=== PATIENT | male | born 1965 | race African-American/Black ===

== ENCOUNTER 2016-05-21 13:45 | Emergency (ER) | payer BC ==
[2016-05-21] MEDS ORDERED: Aspirin Low Dose CHEW TAB* 81 MG PO ONE (13:57)
--- NOTE | 2016-05-21 14:14 | RAD ---
INDICATION: Chest pain COMPARISON: November 04, 2014 TECHNIQUE: An AP portable view obtained at 1400 hours is submitted. FINDINGS: Bones/Soft Tissues: There are no acute bony findings. Cardiomediastinal: The cardiomediastinal silhouette is normal. Lungs: There are no infiltrates. Pleura: There are no pleural effusions. Other: None IMPRESSION: NO ACTIVE DISEASE.
[2016-05-21 14:26] LABS: Hematocrit 43 % (42-52); Hemoglobin 14.7 g/dl (14.0-18.0); Mean Corpuscular HGB Conc 34 g/dl (31-36); Mean Corpuscular Hemoglobin 29 pg (27-31); Mean Corpuscular Volume 86 fL (80-94); Mean Platelet Volume 9 um3 (7.4-10.4); Red Blood Count 5.07 10^6/ul (4.0-5.4); Red Cell Distribution Width 13 % (10.5-15); White Blood Count 6.4 10^3/ul (3.5-10.8)
[2016-05-21 14:42] LABS: Calcium 9.1 mg/dL (8.6-10.3); EGFR African American 88.3 (>60); EGFR Non-African American 68.7 (>60); Total Bilirubin 0.7 mg/dL (0.2-1.0)
[2016-05-21 14:44] LABS: Troponin I 0.01 ng/mL (<0.04)
--- NOTE | 2016-05-21 15:03 | ED ---
Prashanth Tovar Rebecca, scribed for Timothy Dunn MD on 05/21/16 at 1358 . HPI Chest Pain - HPI Summary HPI Summary: Gaudencio Reyes is a 50 y/o M with a CC of CP. Pain began suddenly at 1250 and has been constant since onset. Pain is discrete to the left anterior region without radiation. Pain characterized as pressure and currently moderate, ranked 4/10. Administered 3 325mg [facility]. Sx aggravated and alleviated by nothing. Additionally c/o lightheadedness immediately prior to onset of CP. Prior similar episode with a dx of hyperglycemia. No PMHx CAD. - History of Current Complaint Time Seen by Provider: 05/21/16 13:49 Hx Obtained From: Patient Onset/Duration: Started Hours Ago - 1.5 hours, Still Present Time of Onset: 12:50 Timing: Constant Initial Severity: Moderate Current Severity: Moderate Pain Intensity: 4 Pain Scale Used: 0-10 Numeric Chest Pain Location: Left Anterior Chest Pain Radiates: No Character: Pressure/Squeezing Aggravating Factor(s): Nothing Alleviating Factor(s): Nothing Associated Signs and Symptoms: Positive: Lightheadedness - Allergy/Home Medications Allergies/Adverse Reactions: Allergies Allergy/AdvReac Type Severity Reaction Status Date / Time No Known Allergies Allergy Verified 05/21/16 13:51 PMH/Surg Hx/FS Hx/Imm Hx Endocrine/Hematology History: Reports: Hx Diabetes Denies: Hx Thyroid Disease Cardiovascular History: Reports: Hx Hypertension Respiratory History: Denies: Hx Asthma, Hx Chronic Obstructive Pulmonary Disease (COPD) GI History: Denies: Hx Ulcer - Surgical History Surgery Procedure, Year, and Place: Lipoma removal from neck last year - Immunization History Date of Tetanus Vaccine: Unk Date of Influenza Vaccine: Fall 2013 Infectious Disease History: Denies: Hx Clostridium Difficile, Hx Hepatitis, Hx Human Immunodeficiency Virus (HIV), Hx of Known/Suspected MRSA, Hx Shingles, Hx Tuberculosis, Hx Known/ Suspected VRE, Hx Known/Suspected VRSA, History Other Infectious Disease - Family History Known Family History: Positive: Other - A fib Negative: Cardiac Disease - Social History Alcohol Use: Occasionally Substance Use Type: Reports: None Smoking Status (MU): Never Smoked Tobacco Review of Systems Positive: Chest Pain - moderate, left anterior Neurological: Other - Lightheadedness All Other Systems Reviewed And Are Negative: Yes Physical Exam Triage Information Reviewed: Yes Vital Signs On Initial Exam: Initial Vitals Temp Pulse Resp BP Pulse Ox 98.5 F 91 19 168/89 96 05/21/16 13:45 05/21/16 13:45 05/21/16 13:45 05/21/16 13:45 05/21/16 13:45 Vital Signs Reviewed: Yes Appearance: Positive: Well-Appearing, No Pain Distress Skin: Positive: Warm, Skin Color Reflects Adequate Perfusion, Dry Head/Face: Positive: Normal Head/Face Inspection Eyes: Positive: Normal ENT: Positive: Normal ENT inspection Neck: Positive: Supple, Nontender Respiratory/Lung Sounds: Positive: Clear to Auscultation, Breath Sounds Present Cardiovascular: Positive: RRR, Pulses are Symmetrical in both Upper and Lower Extremities Abdomen Description: Positive: Nontender, Soft Bowel Sounds: Positive: Present Musculoskeletal: Positive: Normal Neurological: Positive: Normal Psychiatric: Positive: Normal, Affect/Mood Appropriate Diagnostics - Vital Signs Vital Signs Temp Pulse Resp BP Pulse Ox 05/21/16 13:45 98.5 F 91 19 168/89 96 - Laboratory Lab Results: Lab Results 05/21/16 05/21/16 05/21/16 Range/Units 14:15 14:15 14:15 WBC 6.4 (3.5-10.8) 10^3/ul RBC 5.07 (4.0-5.4) 10^6/ul Hgb 14.7 (14.0-18.0) g/dl Hct 43 (42-52) % MCV 86 (80-94) fL MCH 29 (27-31) pg MCHC 34 (31-36) g/dl RDW 13 (10.5-15) % Plt Count 183 (150-450) 10^3/ul MPV 9 (7.4-10.4) um3 Neut % (Auto) 62.0 (38-83) % Lymph % (Auto) 26.7 (25-47) % Daggett % (Auto) 9.0 (1-9) % Eos % (Auto) 1.4 (0-6) % Baso % (Auto) 0.9 (0-2) % Absolute Neuts (auto) 4.0 (1.5-7.7) 10^3/ul Absolute Lymphs (auto) 1.7 (1.0-4.8) 10^3/ul Absolute Monos (auto) 0.6 (0-0.8) 10^3/ul Absolute Eos (auto) 0.1 (0-0.6) 10^3/ul Absolute Basos (auto) 0.1 (0-0.2) 10^3/ul Absolute Nucleated RBC 0.01 10^3/ul Nucleated RBC % 0.1 Sodium 136 (133-145) mmol/L Potassium Pending Chloride 100 L (101-111) mmol/L Carbon Dioxide 26 (22-32) mmol/L Anion Gap Pending BUN 9 (6-24) mg/dL Creatinine 1.13 (0.67-1.17) mg/dL Est GFR ( Amer) 88.3 (>60) Est GFR (Non-Af Amer) 68.7 (>60) BUN/Creatinine Ratio 8.0 (8-20) Glucose 267 H (70-100) mg/dL Lactic Acid 2.8 H* (0.5-2.0) mmol/L Calcium 9.1 (8.6-10.3) mg/dL Total Bilirubin 0.70 (0.2-1.0) mg/dL AST Pending ALT 87 H (7-52) U/L Alkaline Phosphatase 69 (34-104) U/L Troponin I 0.01 (<0.04) ng/mL Total Protein 7.0 (6.4-8.9) g/dL Albumin 4.0 (3.2-5.2) g/dL Globulin 3.0 (2-4) g/dL Albumin/Globulin Ratio 1.3 (1-3) Result Diagrams: 05/21/16 14:15 05/21/16 14:15 Lab Statement: Any lab studies that have been ordered have been reviewed, and results considered in the medical decision making process. - Radiology CXR Xray Interpretation: No Acute Changes Radiology Interpretation Completed By: Radiologist - EKG 1346 Cardiac Rate: Tachycardia - Borderline tachycardia at91 bpm EKG Rhythm: Sinus Tachycardia - Borderline tachycardic ST Segment: Non-Specific - Diffuse non-specific T wave changes, flattening EKG Comparison: No Significant Change - from EKG on 11/04/14 Chest Pain Course/Dx - Course Assessment/Plan: Gaudencio Reyes is a 50 y/o M with a CC of left anterior CP for 1.5 hours. Pain characterized as moderate pressure. Additionally c/o lightheadedness immediately prior to onset of pain. EKG reveals sinus tachy and diffuse non-specific T wave changes, flattening and was unchanged significantly from EKG on 11/04/2014. CXR reveals no active disease. He will be signed out to Dr. Reno. - Diagnoses Provider Diagnoses: Chest pain - Provider Notifications Discussed Care Of Patient With: Dr. Reno Time Discussed With Above Provider: 15:00 - change of shift Discharge - Discharge Plan Condition: Stable Disposition: OTHER Discharge Disposition Comment: He will be signed out to Dr. Reno, pending dispo, awaiting labs Referrals: Tin Montemayor MD [Primary Care Provider] - Additional Instructions: Recommend Ibuprofen as directed to treat the pain. The documentation as recorded by the Prashanth hendrix Rebecca accurately reflects the service I personally performed and the decisions made by , Timothy Dunn MD.
[2016-05-21 18:14] VITALS: BP 146/80
--- NOTE | 2016-06-13 11:03 | ED ---
ISuresh Michael, scribed for Yaritza Reno MD on 05/21/16 at 1748 . Progress - Results/Orders Results/Orders: repeat Troponin was nml. Course/Dx - Diagnoses Provider Diagnoses: Chest pain - Provider Notifications Discussed Care Of Patient With: Dr. Reno Time Discussed With Above Provider: 15:00 - change of shift The documentation as recorded by the scribeSuresh Michael accurately reflects the service I personally performed and the decisions made by me, Yaritza Reno MD.
== END 2016-05-21 18:24 | disposition home or self-care (01) ==
LOC: ED 13:45
DX: R07.9 Chest pain, unspecified (principal); R42 Dizziness and giddiness
CPT/HCPCS: 36415; 71010; 80053; 83605; 84484; 85025; 93005; 99282

== ENCOUNTER 2016-09-13 16:52 | Emergency (ER) | payer BC ==
[2016-09-13] MEDS ORDERED: Ciprofloxacin 0.3% OPTH.SOL* 2.5 ML BTL LEFT EYE ONE (20:43)
--- NOTE | 2016-09-13 20:46 | ED ---
Throat Pain/Nasal Congestion - HPI Summary HPI Summary: 51M presents with potential corneal abrasion today. He states he was taking out his contacts and scratched his eye. He wears contacts. He admits to photophobia. He denies any change in vision. He states there was some white discharge s/p he scratched it. He denies any foreign body. - History of Current Complaint Chief Complaint: EDEyeProblem Time Seen by Provider: 09/13/16 19:54 - Allergies/Home Medications Allergies/Adverse Reactions: Allergies Allergy/AdvReac Type Severity Reaction Status Date / Time No Known Allergies Allergy Verified 09/13/16 16:54 PMH/Surg Hx/FS Hx/Imm Hx Endocrine/Hematology History: Reports: Hx Diabetes Denies: Hx Thyroid Disease Cardiovascular History: Reports: Hx Hypertension Respiratory History: Denies: Hx Asthma, Hx Chronic Obstructive Pulmonary Disease (COPD) GI History: Denies: Hx Ulcer Sensory History: Reports: Hx Contacts or Glasses Opthamlomology History: Reports: Hx Contacts or Glasses - Surgical History Surgery Procedure, Year, and Place: Lipoma removal from neck last year - Immunization History Date of Tetanus Vaccine: Unk Date of Influenza Vaccine: Fall 2013 Infectious Disease History: No Infectious Disease History: Denies: Hx Clostridium Difficile, Hx Hepatitis, Hx Human Immunodeficiency Virus (HIV), Hx of Known/Suspected MRSA, Hx Shingles, Hx Tuberculosis, Hx Known/ Suspected VRE, Hx Known/Suspected VRSA, History Other Infectious Disease, Traveled Outside the in Last 30 Days - Family History Known Family History: Positive: Other - A fib Negative: Cardiac Disease - Social History Alcohol Use: Occasionally Substance Use Type: Reports: None Smoking Status (MU): Never Smoked Tobacco Review of Systems Negative: Fever Positive: Photophobia, Blurred Vision Negative: Chest Pain Negative: Shortness Of Breath All Other Systems Reviewed And Are Negative: Yes Physical Exam Triage Information Reviewed: Yes Vital Signs On Initial Exam: Initial Vitals Temp Pulse Resp BP Pulse Ox 97.8 F 78 16 175/99 97 09/13/16 16:55 09/13/16 16:55 09/13/16 16:55 09/13/16 16:55 09/13/16 16:55 Vital Signs Reviewed: Yes Appearance: Positive: Well-Appearing Skin: Positive: Warm, Dry Head/Face: Positive: Normal Head/Face Inspection Eyes: Positive: EOMI, RIAZ, Other: - 1mm corneal abrasion seen at 9 position ENT: Positive: Normal ENT inspection, Pharynx normal, TMs normal Respiratory/Lung Sounds: Positive: Clear to Auscultation, Breath Sounds Present Cardiovascular: Positive: Normal, RRR Procedures - Eye Procedure Alcaine Drops Administered: Yes - fluorscein stain shows abrasion at 9 position that is 1 position Diagnostics - Vital Signs Vital Signs Temp Pulse Resp BP Pulse Ox 09/13/16 18:51 97 F 74 16 147/85 99 09/13/16 16:58 97.9 F 75 16 175/99 98 09/13/16 16:55 97.8 F 78 16 175/99 97 - Laboratory Lab Statement: Any lab studies that have been ordered have been reviewed, and results considered in the medical decision making process. EENT Course/Dx - Course Course Of Treatment: 51M presents with potential corneal abrasion today. He states he was taking out his contacts and scratched his eye. He wears contacts and scratched his eye. He denies any foreign body. on fluroscein exam shows 1mm at 9 position. will treat with cipro due to contact. patient understands and agrees with plan - Differential Diagnoses Differential Diagnoses: Conjunctivitis, Corneal Abrasion, Foreign Body - Diagnoses Provider Diagnoses: Corneal abrasion of left eye due to contact lens Discharge - Discharge Plan Condition: Good Disposition: HOME Patient Education Materials: Corneal Abrasion (ED) Referrals: Tin Montemayor MD [Primary Care Provider] - Adalberto Cruz MD [Medical Doctor] - Additional Instructions: Place 1 drop in eye 4 times a day for 5 days Use artificial tears or saline to rinse eye for symptomatic relief Take Tylenol or ibuprofen for pain Follow up with ophthalmology if no improvement in 5 days Return to ED if develop any new or worsening symptoms
[2016-09-13 20:53] VITALS: BP 178/95
== END 2016-09-13 21:08 | disposition home or self-care (01) ==
LOC: ED 16:52
DX: S05.02XA Injury of conjunctiva and corneal abrasion without foreign body, left eye, initial encounter (principal); H53.149 Visual discomfort, unspecified; H53.8 Other visual disturbances; X58.XXXA Exposure to other specified factors, initial encounter; Y93.9 Activity, unspecified; Y92.9 Unspecified place or not applicable
CPT/HCPCS: 99282; A9270-GY

== ENCOUNTER 2016-12-16 18:54 | Emergency (ER) | payer BC ==
[2016-12-16] MEDS ORDERED: NS 0.9% 1000 ML* 1,000 ML IV ONE (21:46)
[2016-12-16] MEDS ORDERED: Morphine INJ* 4 MG/ML 1 ML CARPUJECT IV ONE (21:46)
[2016-12-16] MEDS ORDERED: Ondansetron INJ* 2 MG/ML VIAL IV ONE (21:46)
[2016-12-16 22:19] LABS: Hematocrit 44 % (42-52); Mean Corpuscular HGB Conc 34 g/dl (31-36); Mean Corpuscular Hemoglobin 29 pg (27-31); Mean Corpuscular Volume 85 fL (80-94); Mean Platelet Volume 9 um3 (7.4-10.4); Red Blood Count 5.12 10^6/ul (4.0-5.4); Red Cell Distribution Width 13 % (10.5-15); White Blood Count 5.8 10^3/ul (3.5-10.8)
[2016-12-16] MEDS ORDERED: Morphine INJ* 2 MG/ML 1 ML CARPUJECT ONE (22:29)
[2016-12-16 22:31] LABS: ALT 23 U/L (7-52); Albumin 3.7 g/dL (3.2-5.2); Alkaline Phosphatase 61 U/L (34-104); BUN/Creatinine Ratio 10.6 (8-20); Blood Urea Nitrogen 10 mg/dL (6-24); CO2 Carbon Dioxide 26 mmol/L (22-32); Calcium 8.8 mg/dL (8.6-10.3); Chloride 102 mmol/L (101-111); EGFR African American 108.8 (>60); EGFR Non-African American 84.6 (>60); Globulin 2.9 g/dL (2-4); Glucose 181 mg/dL (70-100); Lipase < 10 U/L (11.0-82.0); Sodium 133 mmol/L (133-145); Total Protein 6.6 g/dL (6.4-8.9)
[2016-12-16 22:49] LABS: Anion Gap 5 mmol/L (2-11)
[2016-12-17] MEDS ORDERED: Iodixanol* (CONTRAST) 320 MG/ML 100 ML SDV IV ONE (00:45)
[2016-12-17 01:05] LABS: Urine Bilirubin Negative (Negative); Urine Glucose 2+(150 mg/dL) (Negative); Urine Nitrite Negative (Negative)
[2016-12-17 02:33] VITALS: BP 105/53
--- NOTE | 2016-12-17 04:12 | ED ---
Prashanth Tovar Rebecca, scribed for Jose De Jesus Rahmanuel on 12/16/16 at 2141 . Abdominal Pain/Male - HPI Summary HPI Summary: Pt is a 51 y/o M who presents to ED c/o RLQ abdominal pain. Pain began 3 days and has been constant and worsening since onset. Pain is described as burning and pressure and is currently severe, ranked 10/10. Has been taking 800 mg Motrin regularly to treat pain which has improved sx. Sx aggravated by nothing. Denies N/V, CP and scrotal pain. - History of Current Complaint Chief Complaint: EDAbdPain Stated Complaint: LOWER RT SIDE PAIN Time Seen by Provider: 12/16/16 21:30 Hx Obtained From: Patient Onset/Duration: Lasting Days - 3 weeks, Still Present Severity Currently: Severe Pain Intensity: 10 Pain Scale Used: 0-10 Numeric Location: Discrete At: RLQ Character: Burning, Other: - Pressure Aggravating Factor(s): Nothing Alleviating Factor(s): Nothing - Allergies/Home Medications Allergies/Adverse Reactions: Allergies Allergy/AdvReac Type Severity Reaction Status Date / Time No Known Allergies Allergy Verified 12/16/16 19:32 PMH/Surg Hx/FS Hx/Imm Hx Endocrine/Hematology History: Reports: Hx Diabetes Denies: Hx Thyroid Disease Cardiovascular History: Reports: Hx Hypertension Respiratory History: Denies: Hx Asthma, Hx Chronic Obstructive Pulmonary Disease (COPD) GI History: Denies: Hx Ulcer Sensory History: Reports: Hx Contacts or Glasses Opthamlomology History: Reports: Hx Contacts or Glasses - Surgical History Surgery Procedure, Year, and Place: Lipoma removal from neck last year - Immunization History Date of Tetanus Vaccine: Unk Date of Influenza Vaccine: Fall 2013 Infectious Disease History: No Infectious Disease History: Reports: Traveled Outside the [place] in Last 30 Days - [place] Denies: Hx Clostridium Difficile, Hx Hepatitis, Hx Human Immunodeficiency Virus (HIV), Hx of Known/Suspected MRSA, Hx Shingles, Hx Tuberculosis, Hx Known/ Suspected VRE, Hx Known/Suspected VRSA, History Other Infectious Disease - Family History Known Family History: Positive: Other - A fib Negative: Cardiac Disease - Social History Alcohol Use: Occasionally Substance Use Type: Reports: None Smoking Status (MU): Never Smoked Tobacco Review of Systems Negative: Chest Pain Positive: Abdominal Pain. Negative: Vomiting, Nausea Positive: other - NEGATIVE: scrotal pain All Other Systems Reviewed And Are Negative: Yes Physical Exam - Summary Physical Exam Summary: Appearance: Well appearing, no pain distress Skin: warm, dry, reflects adequate perfusion Head/face: normal Eyes: EOMI, RIAZ ENT: normal Neck: supple, nontender Respiratory: CTA, breath sounds present Cardiovascular: RRR, pulses symmetrical Abdomen: RLQ tenderness, soft Bowel: present Musculoskeletal: normal, strength/ROM intact Neuro: normal, sensory motor intact, A&Ox3 Triage Information Reviewed: Yes Vital Signs On Initial Exam: Initial Vitals Temp Pulse Resp BP Pulse Ox 98.2 F 76 16 152/88 96 12/16/16 19:29 12/16/16 19:29 12/16/16 19:29 12/16/16 19:29 12/16/16 19:29 Vital Signs Reviewed: Yes Diagnostics - Vital Signs Vital Signs Temp Pulse Resp BP Pulse Ox 12/16/16 20:55 97.1 F 74 16 131/79 96 12/16/16 19:29 98.2 F 76 16 152/88 96 - Laboratory Result Diagrams: 12/16/16 21:55 12/16/16 23:44 Lab Statement: Any lab studies that have been ordered have been reviewed, and results considered in the medical decision making process. - CT CT Abd/Pel CT Interpretation: No Acute Changes - Tiny bilateral non-obstructing renal stones. Moderate-sized fat containing left inguinal hernia. No definite acute pathology. ED physician reviewed radiology report and agrees. CT Interpretation Completed By: Radiologist - EKG 2248 Cardiac Rate: NL - 70 bpm EKG Rhythm: Sinus Rhythm EKG Interpretation: No acute changes Re-Evaluation - Re-Evaluation First Eval Re-Evaluation Time: 01:56 Change: Improved Comment: Discussed results with the pt who is feeling much better. Abdominal Pain Fem Course/Dx - Course Assessment/Plan: Pt is a 51 y/o M who presents to ED c/o RLQ abdominal pain. Pain began 3 days and has been constant and worsening since onset. Pain is described as burning and pressure and is currently severe, ranked 10/10. Has been taking 800 mg Motrin regularly to treat pain which has improved sx. Denies N/V, CP and scrotal pain. CT Abd/Pel reveals tiny bilateral non-obstructing renal stones. Moderate-sized fat containing left inguinal hernia. Troponin of 0.00. UA negative for UTI. No definite acute pathology. EKG is sinus rhythm with no acute changes. In the ED course, pt received morphine, zofran and fluids which improved sx. Pt will be D/C to home with Dx of abdominal pain with Rx for Motrin and a follow up with his PCP. He understands and agrees. Elevated BP noted and advised to f/u with PCP. - Diagnoses Provider Diagnoses: Abdominal pain Discharge - Discharge Plan Condition: Stable Disposition: HOME Prescriptions: Ibuprofen TAB* [Motrin TAB* 600 MG] 600 mg PO Q8H PRN #20 tab MDD 3 PRN Reason: Pain Patient Education Materials: Acute Abdominal Pain (ED) Referrals: Tin Montemayor MD [Primary Care Provider] - 3 Days The documentation as recorded by the Prashanth hendrix Rebecca accurately reflects the service I personally performed and the decisions made by , Leonel Rahman.
--- NOTE | 2016-12-17 10:24 | RAD ---
INDICATION: RIGHT lower quadrant pain. Intermittent flank pain. Assess for appendicitis. COMPARISON: June 22, 2016 ultrasound. TECHNIQUE: Multidetector CT images were obtained from the lung bases to the ischial tuberosities with 141 mL Visipaque 320 IV and oral contrast. Multiplanar reformation. REPORT: Unremarkable visualized inferior thorax. Diffuse decreased density of the liver consistent with hepatosteatosis. No CT abnormality of the gallbladder or biliary dilatation. Unremarkable pancreas and spleen. Gastric distention with food stuff. Negative for CT abnormality of the small bowel or infra cecal appendix. Enteric contrast extends to the rectum. A few colonic diverticula at the sigmoid colon without findings of diverticulitis. Negative for ascites or free air. Tiny fat-containing umbilical hernia without inflammatory change. Moderate fat-containing indirect LEFT inguinal hernia without inflammatory change. 1.2 x 1.4 cm nodule at the caudal aspect of the LEFT adrenal gland which is nonspecific based on density measurement. Unremarkable RIGHT adrenal gland. Suggestion of 1 mm nonobstructing RIGHT lower pole and few 1 -- 2 mm LEFT upper and lower pole nonobstructing calyceal stones although presence of contrast limits specificity. Symmetric nephrograms and pyelograms. Unremarkable nondilated ureters and partially distended urinary bladder. Mildly prominent prostate with central coarse calcification. Asymmetric diminutive LEFT seminal vesicle. Unremarkable RIGHT seminal vesicle. Negative for lymphadenopathy. Normal diameter abdominal aorta and iliac arteries. Physiologic distention of the IVC. Polyarticular degenerative arthropathy. No suspicious focal osseous lesions evident. IMPRESSION: 1. Hepatic steatosis. 2. Mild colonic diverticulosis without findings of diverticulitis. Normal appendix documented. 3. Tiny fat-containing umbilical hernia without inflammatory change. Moderate fat-containing indirect LEFT inguinal hernia without inflammatory change. 4. Probable tiny nonobstructing renal collecting system stones. 5. Low suspicion 1.4 cm LEFT adrenal nodule based on small size. Consider reassessment with noncontrast CT or MRI in 6 months time.
== END 2016-12-17 02:25 | disposition home or self-care (01) ==
LOC: ED 18:54
DX: R10.31 Right lower quadrant pain (principal); E11.9 Type 2 diabetes mellitus without complications
CPT/HCPCS: 36415; 74177; 80053; 81003; 83690; 84484; 85025; 85610; 85730; 93005; 96374; 96375; 99283; J2270; J2405; Q9967

== ENCOUNTER 2017-06-05 14:48 | Emergency (ER) | payer BC ==
[2017-06-05] MEDS ORDERED: Ibuprofen TAB* 600 MG PO ONE (16:30)
[2017-06-05] MEDS ORDERED: Ondansetron ODT TAB* 4 MG PO ONE (16:30)
[2017-06-05 16:33] VITALS: BP 164/99
--- NOTE | 2017-06-05 20:03 | ED ---
Britni Tovar Edward, scribed for Timothy Dunn MD on 06/05/17 at 1509 . HPI Febrile Illness - HPI Summary HPI Summary: 51 y/o male presents to the ED c/o flu-like symptoms lasting several days. Sx not aggravated or alleviated by anything. Pt c/o body aches, productive cough, sore throat, fever, nasal drainage and general malaise. Positive sick contact at home. - History of Current Complaint Chief Complaint: EDFluSymptoms Time Seen by Provider: 06/05/17 15:08 Hx Obtained From: Patient Onset/Duration: Started Days Ago Pain Intensity: 8 Aggravating Factors: Nothing Alleviating Factors: Nothing Associated Signs and Symptoms: Cough, Drainage, Myalgia, Sore Throat - Allergy/Home Medications Allergies/Adverse Reactions: Allergies Allergy/AdvReac Type Severity Reaction Status Date / Time No Known Allergies Allergy Verified 12/16/16 19:32 PMH/Surg Hx/FS Hx/Imm Hx Previously Healthy: No Endocrine/Hematology History: Reports: Hx Diabetes Denies: Hx Thyroid Disease Cardiovascular History: Reports: Hx Hypertension Respiratory History: Denies: Hx Asthma, Hx Chronic Obstructive Pulmonary Disease (COPD) GI History: Denies: Hx Ulcer History: Denies: Hx Dialysis, Hx Renal Disease Musculoskeletal History: Denies: Hx Rheumatoid Arthritis, Hx Osteoporosis Sensory History: Reports: Hx Contacts or Glasses Opthamlomology History: Reports: Hx Contacts or Glasses - Surgical History Surgery Procedure, Year, and Place: Lipoma removal from neck last year - Immunization History Date of Tetanus Vaccine: Unk Date of Influenza Vaccine: Fall 2013 Infectious Disease History: No Infectious Disease History: Denies: Hx Clostridium Difficile, Hx Hepatitis, Hx Human Immunodeficiency Virus (HIV), Hx of Known/Suspected MRSA, Hx Shingles, Hx Tuberculosis, Hx Known/ Suspected VRE, Hx Known/Suspected VRSA, History Other Infectious Disease, Traveled Outside the [place] in Last 30 Days - Family History Known Family History: Positive: Other - A fib Negative: Cardiac Disease - Social History Alcohol Use: Occasionally Substance Use Type: Reports: None Smoking Status (MU): Never Smoked Tobacco Review of Systems Positive: Fever, Fatigue Eyes: Negative Positive: Sore Throat, Nasal Discharge - rhinorrhea Cardiovascular: Negative Positive: Cough Gastrointestinal: Negative Genitourinary: Negative Positive: Myalgia Skin: Negative Neurological: Negative Psychological: Normal All Other Systems Reviewed And Are Negative: Yes Physical Exam - Summary Physical Exam Summary: Appearance: The patient is well-nourished in no acute distress and in no acute pain. Skin: The skin is warm and dry and skin color reflects adequate perfusion. HEENT: The head is normocephalic and atraumatic. The pupils are equal and reactive. The conjunctivae are clear and without drainage. The patient has some nasal congestion. Mouth reveals moist mucous membranes and the throat is without erythema and exudate. The external ears are intact. The ear canals are patent and without drainage. The tympanic membranes are mildly erythematous. Neck: the neck is supple with full range of motion and non-tender. There are no carotid bruits. There is no neck vein distension. Respiratory: Chest is non-tender. Lungs are clear to auscultation and breath sounds are symmetrical and equal. Cardiovascular: Heart is regular rate and rhythm. There is no murmur or rub auscultated. There is no peripheral edema and pulses are symmetrical and equal. Abdomen: The abdomen is soft and non-tender. There are normal bowel sounds heard in all four quadrants and there is no organomegaly palpated. Musculoskeletal: There is no back tenderness noted. Extremities are non-tender with full range of motion. There is good capillary refill. There is no peripheral edema or calf tenderness elicited. Neurological: Patient is alert and oriented to person, place and time. The patient has symmetrical motor strength in all four extremities. Cranial nerves are grossly intact. Deep tendon reflexes are symmetrical and equal in all four extremities. Psychiatric: The patient has an appropriate affect and does not exhibit any anxiety or depression. Triage Information Reviewed: Yes Vital Signs On Initial Exam: Initial Vitals Temp Pulse Resp BP Pulse Ox 100.4 F 101 20 155/89 96 06/05/17 14:59 06/05/17 14:59 06/05/17 14:59 06/05/17 14:59 06/05/17 14:59 Vital Signs Reviewed: Yes Diagnostics - Vital Signs Vital Signs Temp Pulse Resp BP Pulse Ox 06/05/17 14:59 100.4 F 101 20 155/89 96 - Laboratory Lab Results: Lab Results 06/05/17 Range/Units 15:41 Influenza A (Rapid) Negative (Negative) Influenza B (Rapid) Positive A (Negative) Lab Statement: Any lab studies that have been ordered have been reviewed, and results considered in the medical decision making process. Course/Dx - Course Course Of Treatment: Mr. Reyes came in concerned that he has influenza. He was positive for influenza B. He was quite stable and was started on medications. - Diagnoses Provider Diagnoses: Influenza B Discharge - Discharge Plan Condition: Stable Disposition: HOME Prescriptions: Ondansetron ODT TAB* [Zofran Odt TAB*] 4 mg PO Q6H PRN #20 tab.odt PRN Reason: Nausea/Vomiting Oseltamivir CAP* [Tamiflu CAP*] 75 mg PO BID #10 cap Patient Education Materials: Influenza (ED) Forms: *Work Release Referrals: Tin Montemayor MD [Medical Doctor] - 4 Days (PLEASE F/U IN 3-5 DAYS) Additional Instructions: RETURN FOR WORSENING SYMPTOMS The documentation as recorded by the Britni hendrix Edward accurately reflects the service I personally performed and the decisions made by , Timothy Dunn MD.
== END 2017-06-05 16:29 | disposition home or self-care (01) ==
LOC: ED 14:48
DX: J10.1 Influenza due to other identified influenza virus with other respiratory manifestations (principal); R05 Cough; J02.9 Acute pharyngitis, unspecified
CPT/HCPCS: 87502; 99281

== ENCOUNTER 2017-12-23 08:28 | Emergency (ER) | payer BC, OTHER ==
--- NOTE | 2017-12-23 08:43 | ED ---
HPI Chest Pain - HPI Summary HPI Summary: This patient is a 52 year old M presenting to [facility] accompanied by his with a chief complaint of sudden sharp mid sternal chest pain while driving from work this morning lasting roughly 5 minutes before subsiding. Patient also reports pain in his lower lip with chest pain. Pain was 8/10 in severity. He denies SOB and nausea. He additionally reports that he worked out yesterday and id chest exercises and ran 5 miles. PMHx of DM and HTN. - History of Current Complaint Time Seen by Provider: 12/23/17 08:30 Hx Obtained From: Patient Onset/Duration: Started Hours Ago, Resolved Timing: Lasting Minutes Initial Severity: Severe Current Severity: None Pain Intensity: 8 Pain Scale Used: 0-10 Numeric Chest Pain Location: Mid Sternal Chest Pain Radiates: Yes Chest Pain Radiates To:: Other - lower lip Character: Sharp/Stabbing Aggravating Factor(s): Nothing Alleviating Factor(s): Spontaneous Resolution Associated Signs and Symptoms: Negative: Shortness of Breath, Nausea - Allergy/Home Medications Allergies/Adverse Reactions: Allergies Allergy/AdvReac Type Severity Reaction Status Date / Time No Known Allergies Allergy Verified 12/16/16 19:32 PMH/Surg Hx/FS Hx/Imm Hx Endocrine/Hematology History: Reports: Hx Diabetes Denies: Hx Thyroid Disease Cardiovascular History: Reports: Hx Hypertension Respiratory History: Denies: Hx Asthma, Hx Chronic Obstructive Pulmonary Disease (COPD) GI History: Denies: Hx Ulcer History: Denies: Hx Dialysis, Hx Renal Disease Musculoskeletal History: Denies: Hx Rheumatoid Arthritis, Hx Osteoporosis Sensory History: Reports: Hx Contacts or Glasses Opthamlomology History: Reports: Hx Contacts or Glasses - Surgical History Surgery Procedure, Year, and Place: Lipoma removal from neck last year - Immunization History Date of Tetanus Vaccine: Unk Date of Influenza Vaccine: Fall 2013 Infectious Disease History: Denies: Hx Clostridium Difficile, Hx Hepatitis, Hx Human Immunodeficiency Virus (HIV), Hx of Known/Suspected MRSA, Hx Shingles, Hx Tuberculosis, Hx Known/ Suspected VRE, Hx Known/Suspected VRSA, History Other Infectious Disease - Family History Known Family History: Positive: Other - A fib Negative: Cardiac Disease - Social History Occupation: Employed Full-time Alcohol Use: Occasionally Substance Use Type: Reports: None Smoking Status (MU): Never Smoked Tobacco Review of Systems Positive: Chest Pain Negative: Shortness Of Breath Negative: Abdominal Pain, Nausea All Other Systems Reviewed And Are Negative: Yes Physical Exam - Summary Physical Exam Summary: VITAL SIGNS: Reviewed. GENERAL: Patient is a well-developed and nourished male who is lying comfortable in the stretcher. Patient is not in any acute respiratory distress. HEAD AND FACE: No signs of trauma. No ecchymosis, hematomas or skull depressions. No sinus tenderness. EYES: PERRLA, EOMI x 2, No injected conjunctiva, no nystagmus. EARS: Hearing grossly intact. Ear canals and tympanic membranes are within normal limits. MOUTH: Oropharynx within normal limits. NECK: Supple, trachea is midline, no adenopathy, no JVD, no carotid bruit, no c- spine tenderness, neck with full ROM. CHEST: Symmetric, no tenderness at palpation LUNGS: Clear to auscultation bilaterally. No wheezing or crackles. CVS: Regular rate and rhythm, S1 and S2 present, no murmurs or gallops appreciated. ABDOMEN: Soft, non-tender. No signs of distention. No rebound no guarding, and no masses palpated. Bowel sounds are normal. EXTREMITIES: FROM in all major joints, no edema, no cyanosis or clubbing. NEURO: Alert and oriented x 3. No acute neurological deficits. Speech is normal and follows commands. SKIN: Dry and warm Triage Information Reviewed: Yes Vital Signs Reviewed: Yes Diagnostics - Laboratory Result Diagrams: 12/23/17 08:47 12/23/17 08:47 Lab Statement: Any lab studies that have been ordered have been reviewed, and results considered in the medical decision making process. - Radiology CXR Radiology Interpretation Completed By: Radiologist - NO ACTIVE CARDIOPULMONARY DISEASE. ED Physician has reviewed this report. - EKG 0832 Cardiac Rate: NL - 79 BPM EKG Rhythm: Sinus Rhythm EKG Interpretation: no ST elevations Chest Pain Course/Dx - Course Assessment/Plan: This patient is a 52 year old M presenting to [facility] accompanied by his with a chief complaint of sudden sharp midsternal chest pain while driving from work this morning lasting roughly 5 minutes before subsiding. Patient also reports pain in his lower lip with chest pain. Pain was 8/10 in severity. He denies SOB and nausea. He additionally reports that he worked out yesterday and id chest exercises and ran 5 miles. PMHx of DM and HTN. Physical exam is found within normal limits. In the ER the patient is asymptomatic. The patient denies any chest pain shortness of breath or palpitations. The pain was sharp pain and lasted for 5 minutes. The patient reports that he runs approximately 5 miles every day and he doesnt have any chest pain shortness of breath or palpitations. He reports that yesterday he worked out with heavy weights for the chest and on and off he is having these reproducible sharp chest pains. Blood test results without any significant abnormality except for glucose of 200, magnesium is 1. 6. Which the patient was given magnesium by mouth. Total CPK is 499 point secondary to the heavy workout yesterday. He had 2 troponins 4 hours apart and is 0.00. Given that the patient has history of hypertension and diabetes the patient has been doing a lot of perivascular training every day for without any type of chest pain or angina. The patient also has no hypoxia or tachycardia therefore I have little suspicion for PE. The heart score is equal to 3. Therefore I believe that the patient can be managed as an outpatient. Therefore the patient will be discharged home with follow-up with primary care physician. The patient continues to be asymptomatic. I had a long discussion with the patient about admission versus management as an outpatient and actually the patient prefers to go a follow-up with cardiology as an outpatient. Of course the patient was given specific instructions if he develops any other chest pain, shortness of breath, nausea or vomiting, palpitations or feeling that he is going to pass out the patient will immediately return to the emergency room for further workup and management. At this point the patient is hemodynamically stable alert and oriented 3. I discussed all the findings and test results with the patient. Patient was instructed to return to the emergency room immediately if any of the symptoms return or worsens. Plan of care was discussed with the patient and understands and agrees. All questions were answered at patient satisfaction. There were no further complaints or concerns. Lung exam before discharge: CTA B/L. Good air exchange. No wheezing or crackles heard. CVS: S1 and S2 present. No murmurs appreciated. Patient is alert and oriented x 3. Patient is hemodynamically stable. Patient will be discharged home with follow up PCP in the next 2-3 days - Chest Pain Differential Diagnosis/HQI/PQRI: Acute [place], ACS, Angina, CHF, Chest Wall, GI Disease, Lower Respiratory Infection, Pulmonary Edema - Diagnoses Provider Diagnoses: Atypical chest pain Discharge - Sign-Out/Discharge Documenting (check all that apply): Patient Departure - discharge - Discharge Plan Condition: Stable Disposition: HOME Patient Education Materials: Chest Pain (ED) Referrals: [facility] [Outside] - 2 Days Additional Instructions: RETURN TO THE EMERGENCY DEPARTMENT FOR CHANGING OR WORSENING SYMPTOMS. - Billing Disposition and Condition Condition: STABLE Disposition: Home - Attestation Statements Document Initiated by Scribe: Yes Documenting Scribe: Sarina Lee Provider For Whom Krystae is Documenting (Include Credential): Chris Dalton MD Scribe Attestation: Sarina Tovar, scribed for Chris Dalton MD on 12/23/17 at 1837. Scribe Documentation Reviewed: Yes Provider Attestation: The documentation as recorded by the [email or web address] accurately reflects the service I personally performed and the decisions made by , Chris Dalton MD
[2017-12-23 08:56] LABS: ABS Basophils 0 10^3/ul (0-0.2); ABS Eosinophils 0.1 10^3/ul (0-0.6); ABS Lymphocytes 2.1 10^3/ul (1.0-4.8); ABS Monocytes 0.8 10^3/ul (0-0.8); ABS Nucleated RBC 0 10^3/ul; Hematocrit 43 % (42-52); Hemoglobin 14.7 g/dl (14.0-18.0); Lymphocyte % 35.3 % (25-47); Mean Corpuscular HGB Conc 34 g/dl (31-36); Mean Corpuscular Hemoglobin 30 pg (27-31); Mean Corpuscular Volume 87 fL (80-94); Mean Platelet Volume 8.3 um3 (7.4-10.4); Nucleated Red Blood Cells % 0.3; Platelet Count 186 10^3/ul (150-450); Red Blood Count 4.92 10^6/ul (4.00-5.40); Red Cell Distribution Width 14 % (10.5-15); White Blood Count 5.9 10^3/ul (3.5-10.8)
--- NOTE | 2017-12-23 09:11 | RAD ---
HISTORY: CP COMPARISONS: May 21, 2016 VIEWS: 1: frontal AP view of the chest at 8:40 AM FINDINGS: LINES AND TUBES: None. CARDIOMEDIASTINAL SILHOUETTE: The cardiomediastinal silhouette is normal for portable technique. PLEURA: The costophrenic angles are sharp. No pleural abnormalities are noted. LUNG PARENCHYMA: The lungs are clear. ABDOMEN: The upper abdomen is clear. There is no subphrenic gas. BONES AND SOFT TISSUES: No bone or soft tissue abnormalities are noted. IMPRESSION: NO ACTIVE CARDIOPULMONARY DISEASE.
[2017-12-23 09:12] LABS: EGFR Non-African American 77.6 (>60)
[2017-12-23 09:22] LABS: INR 0.9 (0.77-1.02)
[2017-12-23] MEDS ORDERED: Magnesium Oxide TAB* 400 MG PO ONE (11:21)
[2017-12-23 12:51] VITALS: BP 140/92
== END 2017-12-23 12:52 | disposition home or self-care (01) ==
LOC: ED 08:28
DX: R07.89 Other chest pain (principal); E11.9 Type 2 diabetes mellitus without complications; I10 Essential (primary) hypertension
CPT/HCPCS: 36415; 71045; 80053; 82550; 82553; 83605; 83735; 83880; 84443; 84484; 85025; 85610; 85730; 93005; 99282

== ENCOUNTER 2019-06-27 12:03 | Inpatient (IN) | payer BC ==
[2019-06-27] MEDS ORDERED: Aspirin 81 mg CHEW TAB* 81 MG TAB.CHEW PO ONE (12:16)
--- NOTE | 2019-06-27 12:17 | ED ---
HPI Chest Pain - HPI Summary HPI Summary: Patient is a 53-year-old male for chest pain that started prior to arrival. Pt. states he was biking for about 25 minutes and then developed left sided chest pain. Pain has improved since being in the ED and is a 1/10. He is unable to describe pain. Denies associated syncope, dizziness, diaphoresis, sob, fever, recent illness. 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 Past medical hx of obesity, DM, HTN. Denies smoking. Denies drug use. Rare ETOH use. Denies strong family hx of CAD. Sxs are moderate in severity. No current modifying factors. - History of Current Complaint Chief Complaint: EDChestPainROMI Time Seen by Provider: 06/27/19 12:14 Hx Obtained From: Patient Pain Intensity: 0 - Allergy/Home Medications Allergies/Adverse Reactions: Allergies Allergy/AdvReac Type Severity Reaction Status Date / Time No Known Allergies Allergy Verified 12/16/16 19:32 Home Medications: Home Medications metFORMIN* [Glucophage 500 MG TAB *] 1,000 mg PO BID 08/18/14 [History Confirmed 06/27/19] Telmisartan/Hydrochlorothiazid [Telmisartan-Hctz 40-12.5 mg Tb] 1 each PO DAILY 06/27/19 [History Confirmed 06/27/19] PMH/Surg Hx/FS Hx/Imm Hx Previously Healthy: Yes Endocrine/Hematology History: Reports: Hx Diabetes Denies: Hx Thyroid Disease Cardiovascular History: Reports: Hx Hypertension Denies: Hx Pacemaker/ICD Respiratory History: Denies: Hx Asthma, Hx Chronic Obstructive Pulmonary Disease (COPD) GI History: Denies: Hx Ulcer History: Denies: Hx Dialysis, Hx Renal Disease Musculoskeletal History: Denies: Hx Rheumatoid Arthritis, Hx Osteoporosis Sensory History: Reports: Hx Contacts or Glasses Denies: Hx Hearing Aid Opthamlomology History: Reports: Hx Contacts or Glasses Psychiatric History: Denies: Hx Panic Disorder - Surgical History Surgery Procedure, Year, and Place: Lipoma removal - Immunization History Date of Tetanus Vaccine: Unk Date of Influenza Vaccine: Fall 2013 Infectious Disease History: No Infectious Disease History: Denies: Hx Clostridium Difficile, Hx Hepatitis, Hx Human Immunodeficiency Virus (HIV), Hx of Known/Suspected MRSA, Hx Shingles, Hx Tuberculosis, Hx Known/ Suspected VRE, Hx Known/Suspected VRSA, History Other Infectious Disease, Traveled Outside the [place] in Last 30 Days - Family History Known Family History: Positive: Other - A fib Negative: Cardiac Disease - Social History Occupation: Employed Full-time Lives: With Family Alcohol Use: Occasionally Substance Use Type: Reports: None Smoking Status (MU): Never Smoked Tobacco Review of Systems Constitutional: Negative Negative: Fever Positive: Chest Pain Respiratory: Negative Negative: Shortness Of Breath, Cough Gastrointestinal: Negative Negative: Abdominal Pain, Vomiting, Nausea Neurological/Mental Status: Negative All Other Systems Reviewed And Are Negative: Yes Physical Exam Triage Information Reviewed: Yes Vital Signs On Initial Exam: Initial Vitals Temp Pulse Resp BP Pulse Ox 97.3 F 99 16 154/97 96 06/27/19 12:09 06/27/19 12:09 06/27/19 12:09 06/27/19 12:09 06/27/19 12:09 Vital Signs Reviewed: Yes Appearance: Positive: Well-Appearing - Pt. sitting up in bed in NAD. Skin: Positive: Warm, Dry Head/Face: Positive: Normal Head/Face Inspection Eyes: Positive: Normal, EOMI, RIAZ Neck: Positive: Supple Respiratory/Lung Sounds: Positive: Clear to Auscultation, Breath Sounds Present. Negative: Rales, Rhonchi, Wheezes Cardiovascular: Positive: Normal, RRR Musculoskeletal: Positive: Normal, Strength/ROM Intact Neurological: Positive: Normal, CN Intact II-III Psychiatric: Positive: Affect/Mood Appropriate Procedures - Sedation Patient Received Moderate/Deep Sedation with Procedure: No Diagnostics - Vital Signs Vital Signs Temp Pulse Resp BP Pulse Ox 06/27/19 12:09 97.3 F 99 16 154/97 96 - Laboratory Result Diagrams: 06/27/19 12:33 06/27/19 12:33 Lab Statement: Any lab studies that have been ordered have been reviewed, and results considered in the medical decision making process. Chest Pain Course/Dx - Course Course Of Treatment: Pt. with left sided CP after exercise. Afebrile. Mildy tachycardia. O2 in mid 90's. 324mg ASA given. Pain minimal at this time. ECG done at 1219 shows a sinus tachycardia of 107bpm, normal axis, appropriate intervals, flat t waves, no STEMI. Labs unremarkable other than glucose of 391. Troponin negative x 1. CXR negative for acute findings per radiology. HEART score 5, moderate risk. Hopsitalist consulted for admission. Case discussed with Dr. Perry who will admit to her service for further evaluation. - Chest Pain Differential Diagnosis/HQI/PQRI: Acute [place], ACS, Angina, GI Disease - Diagnoses Provider Diagnoses: Chest pain, Hyperglycemia, Abnormal ECG Discharge ED - Sign-Out/Discharge Documenting (check all that apply): Patient Departure - Discharge Plan Condition: Stable Disposition: ADMITTED TO [facility] Referrals: No Primary Care Phys,NOPCP [Primary Care Provider] - - Billing Disposition and Condition Condition: STABLE Disposition: Admitted to [facility]
[2019-06-27] MEDS ORDERED: NS 0.9% 1000 ML** 1,000 ML IV ONE ×2 (12:26→13:36)
[2019-06-27 12:42] LABS: ABS Lymphocytes 1.3 10^3/ul (1.0-4.8); ABS Monocytes 0.5 10^3/ul (0-0.8); ABS Neutrophils 4.8 10^3/ul (1.5-7.7); Eosinophil % 0.4 %; Hematocrit 43 % (42-52); Mean Corpuscular HGB Conc 35 g/dL (31-36); Mean Corpuscular Hemoglobin 30 pg (27-31); Mean Corpuscular Volume 85 fL (80-94); Mean Platelet Volume 9.4 fL (7.4-10.4); Nucleated Red Blood Cells % 0.1; Platelet Count 178 10^3/uL (150-450); Red Blood Count 5.05 10^6 /uL (4.18-5.48); Red Cell Distribution Width 13 % (10-15); White Blood Count 6.7 10^3/uL (3.5-10.8)
[2019-06-27 12:53] LABS: Activated Partial Thrombo Time 32.7 seconds (26.0-38.0); INR 0.92 (0.82-1.09)
[2019-06-27 12:59] LABS: Albumin/Globulin Ratio 1.3 (1-3); BUN/Creatinine Ratio 12.5 (8-20); Calcium 9.3 mg/dL (8.6-10.3); EGFR Non-African American 68.6 (>60); Total Bilirubin 0.8 mg/dL (0.2-1.0)
[2019-06-27 13:01] LABS: Troponin I 0.01 ng/mL (<0.03)
[2019-06-27 13:12] LABS: Magnesium 1.8 mg/dL (1.9-2.7); Potassium 3.8 mmol/L (3.5-5.0)
[2019-06-27] MEDS ORDERED: Acetaminophen TAB* 325 MG PO PRN (15:05)
[2019-06-27] MEDS ORDERED: Nitroglycerin TAB 0.4 MG* 0.4 MG TAB SL PRN (15:05)
[2019-06-27] MEDS ORDERED: Ondansetron INJ* 2 MG/ML VIAL IV PRN (15:05)
[2019-06-27] MEDS ORDERED: Dextrose 50% Syringe 50 ML* 25 GM/50 ML SYRINGE IV PUSH PRN (15:08)
[2019-06-27] MEDS ORDERED: Insulin LISPRO* 1 UNITS UNIT SUBCUT ONE (15:10)
--- NOTE | 2019-06-27 17:44 | HP ---
CC: Dr. Mariely Storm * ADMISSION HISTORY AND PHYSICAL: DATE OF ADMISSION: 06/27/19 PRIMARY CARE PHYSICIAN: Dr. Mariely Storm. MY ATTENDING PHYSICIAN WHILE IN THE HOSPITAL: Dr. Pam Perry.* (DICTATED BY JOSHUA VÁSQUEZ) CHIEF COMPLAINT: Chest pain x4 hours. HISTORY OF PRESENT ILLNESS: Mr. Reyes is a 53-year-old male with past medical history significant for hypertension, diabetes, and obstructive sleep apnea, who presents to the emergency department after today he exercised for the first time in 2 weeks due to the gym being closed he ran on the stationary bike for approximately 25 minutes, did not feel chest pressure while on the stationary bike, but after 10 minutes, he developed sudden onset of left-sided chest pressure, which was moderate in severity, without associated symptoms such as shortness of breath, nausea, vomiting, or diaphoresis. The patient had a similar pain, which was much more mild in severity approximately one week prior , but had attributed this to a muscle strain. The patient has not had pain like this before. He has never had heart attack before. 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 The patient denies any fevers, chills, any shortness of breath, nausea, vomiting, or abdominal symptoms. The patient has had some tingling in his left hand, which sounds to be like carpal tunnel, has not had this fully evaluated. The patient recently was in [place] for his brother's fiance's and flew therein back. The patient has been awoken several times during the night since then with cramping in his left calf. He has noticed no swelling or redness in that calf though. The patient in the emergency department is found to have a chest x-ray showing some signs of right- sided strain as well as nonspecific ST-segment changes in the lateral leads that are different from his prior exam . The patient had initially negative troponin. Due to concern for chest pain in patient with risk factors, we are asked to evaluate the patient for admission to the hospital. Of note, the patient wears CPAP and has been compliant with it. The patient's pain was not reproducible with palpation nor any movement. PAST MEDICAL HISTORY: Hypertension, diabetes mellitus type 2, obstructive sleep apnea, possible history of adrenal adenoma. PAST SURGICAL HISTORY: Lipoma removal x2, tonsillectomy. MEDICATIONS: 1. Metformin 1000 mg p.o. b.i.d. 2. Hydrochlorothiazide/telmisartan 12.5/40 one tab p.o. daily. ALLERGIES: No known drug allergies FAMILY HISTORY: The patient's father has CLL, is 78 years old and is being discharged today from the hospital after a novel coronavirus infection. The patient's mother is alive with hypertension and hyperlipidemia. The patient's father's side has a strong history of hypertension. The patient's mother side has strong history of diabetes. The patient has a sister with hypertension, a brother who is 5 years younger than him is healthy and another brother who is 15 years younger than him is healthy. SOCIAL HISTORY: The patient never smoked. The patient drinks occasionally. The patient uses occasional marijuana. The patient works as a respiratory therapist, currently working at [employer], though he does travel. The patient is and has 5 children. REVIEW OF SYSTEMS: A 10-point review of systems was reviewed, is negative except as above in the HPI. PHYSICAL EXAMINATION GENERAL: The patient is a 53-year-old male, who appears stated age and sitting in bed in no acute distress. VITAL SIGNS: At the time of evaluation, temperature 97.3, pulse rate 95, respiratory rate 20, oxygen saturation 95% on room air, blood pressure 135/101. HEENT: Head: Normocephalic, atraumatic. Sclerae anicteric. No conjunctival injection. Nasal mucosa moist. Oral mucosa moist. No pharyngeal erythema, discharge, or exudate. NECK: Supple, nontender. No lymphadenopathy. No carotid bruit auscultated. No JVD. RESPIRATORY: Clear to auscultation bilaterally. No wheezes, rales or rhonchi. Good air exchange bilaterally. CARDIAC: Regular rate and rhythm. No clicks, murmurs, gallops or rubs. Pulses 2+ in the dorsalis pedis, posterior tibialis, and radial areas. No bilateral calf tenderness. No asymmetrical leg swelling. ABDOMEN: Soft, nontender, nondistended. Bowel sounds present. Normoactive in all 4 quadrants. No hepatosplenomegaly. No abdominal bruits auscultated. No hepatojugular reflux. GENITOURINARY: No suprapubic tenderness or CVA tenderness. NEUROLOGIC: Cranial nerves II through XII intact. No focal deficits. Alert and oriented x3. SKIN: Clean, dry, intact. No rash. PSYCHIATRIC: Pleasant and cooperative. DIAGNOSTIC STUDIES/LAB DATA: White blood cell count 6.5, hemoglobin 15.0, INR 0.92, aPTT 32.7. Sodium 135, potassium 3.8, chloride 98, carbon dioxide 27, anion gap 8, BUN 14, creatinine 1.12, glucose 391, lactic acid 1.8, calcium 9.3 , magnesium 1.8, bilirubin 0.8, AST 28, ALT 33, alkaline phosphatase 84. Troponin I 0.01, protein 7.0, albumin 2.0. Studies: Chest x-ray, there is no cardiopulmonary abnormality. EKG shows sinus tachycardia with borderline ST depression with T-wave inversions in V4, V5 , and V6, minor S1, Q3 as well as T-wave inversion in lead III and aVF plus right atrial enlargement with QTc of 431 and rate of 107. ASSESSMENT AND PLAN: Impression: Mr. Reyes is a 53-year-old male with past medical history significant for hypertension, diabetes mellitus, and obstructive sleep apnea, who presented to the emergency department with several hours of abrupt- onset chest pain in association with exertion, which has now resolved, admitted to the hospital for rule out myocardial infarction and further evaluation of the chest pain. 1. Chest pain. The patient's chest pain is moderately worrisome for being related to unstable angina. The patient does have risk factors with hemoglobin A1c and lipid profile, though he is generally very active. The patient's HEART score is 4, LINNEA score is 2. The patient will be admitted to the hospital for troponin trending, repeat EKG and nuclear cardiac stress test in the morning. Given the patient's recent air travel and cough symptoms in association with sinus tachycardia and right-sided strain on his EKG, the patient will have a D- dimer added on which will help guide whether or not to obtain a CTA. This may be also musculoskeletal or related to the patient's gastrointestinal tract as he has been saying he is having more reflux related to his stress. 2. Hypertension. The patient is currently normotensive. Continue the patient' s home medications. 3. Diabetes mellitus type 2. The patient is markedly hyperglycemic at this point likely related to stress and not taking his metformin at this point. The patient will be given insulin at this time and we will continue the blood sugar monitor with meals with sliding scale insulin. The patient will have the hemoglobin A1c. 4. DVT prophylaxis: The patient is at low risk. The patient with SCDs. 5. FEN: The patient will have heart healthy diet without caffeine, n.p.o. after midnight. Fluids not indicated at this time. 6. Disposition: The patient will be admitted for observation in the hospital. 7. Code status. The patient would like to be a full code. The patient's surrogate decision maker will be his , Kirsten. TIME SPENT: Approximately 60 minutes was spent on this admission of this patient, 30 of which was spent [id number] with the patient obtaining history and physical and discussing treatment plan. This plan was discussed with Dr. Pam Perry, and she is in agreement. JOSHUA VÁSQUEZ [id number]/[facility] #: [id number] ANUJ
[2019-06-27] MEDS: Insulin LISPRO* 1 UNITS UNIT SUBCUT SCH (18:45)
[2019-06-27] MEDS: metFORMIN* 1,000 MG TAB PO SCH (18:47)
[2019-06-28 06:21] LABS: BUN/Creatinine Ratio 9.6 (8-20); Calcium 8.5 mg/dL (8.6-10.3); EGFR African American 101.6 (>60); EGFR Non-African American 83.9 (>60); HDL Cholesterol 43.7 mg/dL; Magnesium 1.7 mg/dL (1.9-2.7); Potassium 3.5 mmol/L (3.5-5.0)
[2019-06-28] MEDS ORDERED: Magnesium Sulfate 2 GM IV* 2 GM/50 ML BAG IVPB ONE (06:59)
[2019-06-28] MEDS: Insulin LISPRO* 1 UNITS UNIT SUBCUT SCH ×3 (07:40→16:57)
[2019-06-28] MEDS ORDERED: Hydrochlorothiazide TAB* 25 MG PO SCH (09:00)
[2019-06-28] MEDS: Losartan TAB* 25 MG PO SCH (10:42)
[2019-06-28] MEDS: Aspirin EC TAB* 81 MG TAB.EC PO SCH (10:42)
[2019-06-28] MEDS: metFORMIN* 1,000 MG TAB PO SCH (11:20)
[2019-06-28] MEDS ORDERED: diPHENhydraMINE PO* 25 MG PO PRN (12:15)
[2019-06-28] MEDS ORDERED: Diazepam TAB(*) 5 MG PO PRN (12:15)
[2019-06-28] MEDS ORDERED: Metoprolol Tartrate IV* 1 MG/ML 5 ML VIAL IV ONE (12:25)
[2019-06-28] MEDS ORDERED: Aspirin 81 mg CHEW TAB* 81 MG TAB.CHEW PO ONE (12:26)
[2019-06-28] MEDS ORDERED: Metoprolol Tartrate IV* 1 MG/ML 5 ML VIAL ONE (12:27)
[2019-06-28] MEDS ORDERED: Aspirin 81 mg CHEW TAB* 81 MG TAB.CHEW ONE (12:28)
[2019-06-28] MEDS ORDERED: Heparin DRIP 25,000 UNITS(*) 25,000 UNITS/500 ML BAG IV SCH (12:30)
[2019-06-28] MEDS ORDERED: Heparin VIAL(*) 5000 UNITS/ML VIAL (FIVE THOUSAND) IV SCH (13:00)
[2019-06-28] MEDS ORDERED: Nitro 2% OINT* (Nitroglycerin) 1 INCH/PAK PAK TOPICAL SCH (13:00)
[2019-06-28] MEDS: NS 0.9% 1000 ML** 1,000 ML IV SCH ×2 (13:02→22:58)
[2019-06-28 13:13] LABS: ABS Lymphocytes 1.5 10^3/ul (1.0-4.8); ABS Monocytes 0.5 10^3/ul (0-0.8); ABS Neutrophils 3.9 10^3/ul (1.5-7.7); Eosinophil % 0.8 %; Hematocrit 41 % (42-52); Hemoglobin 14.6 g/dL (14.0-18.0); Lymphocyte % 24.6 %; Mean Corpuscular HGB Conc 36 g/dL (31-36); Mean Corpuscular Hemoglobin 31 pg (27-31); Mean Corpuscular Volume 85 fL (80-94); Mean Platelet Volume 9.4 fL (7.4-10.4); Nucleated Red Blood Cells % 0.2; Platelet Count 169 10^3/uL (150-450); Red Blood Count 4.78 10^6 /uL (4.18-5.48); Red Cell Distribution Width 13 % (10-15)
[2019-06-28 13:19] LABS: INR 1.04 (0.82-1.09)
[2019-06-28 13:22] LABS: EGFR African American 104.1 (>60); EGFR Non-African American 86.1 (>60)
--- NOTE | 2019-06-28 13:32 | PN ---
Subjective Date of Service: 06/28/19 Interval History: Patient is this morning CP free, Patient did have some chest pain with his stress test. Patient denies F/C, N/V, abdominal pain, diarrhea, dizziness palpitations, or other pain. Patient informed of his abnormal stress test and states he would like a catheterization if indicated. Family History: Unchanged from Admission Social History: Unchanged from Admission Past Medical History: Unchanged from Admission Objective Active Medications: Acetaminophen (Tylenol Tab*) 650 mg PO Q6H PRN PRN Reason: MILD PAIN or TEMP > 100.4 Aspirin (Aspirin Ec Tab*) 81 mg PO DAILY [facility] Last Admin: 06/28/19 10:42 Dose: 81 mg Dextrose (D50w Syringe 50 Ml*) 12.5 gm IV PUSH .FOR FS < 60 - SS PRN PRN Reason: FS < 60 Diazepam (Valium Tab(*)) 5 mg PO ONCE PRN PRN 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 Diphenhydramine HCl (Benadryl Po*) 25 mg PO ONCE PRN PRN 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 Heparin Sodium (Porcine) (Heparin Vial(*)) 0 units IV .FOR HEPARIN BOLUSES [facility] Last Admin: 06/28/19 12:51 Dose: 4,000 units Hydrochlorothiazide (Hydrodiuril Tab*) 12.5 mg PO DAILY [facility] Last Admin: 06/28/19 10:42 Dose: 12.5 mg Sodium Chloride (Ns 0.9% 1000 Ml) 1,000 mls @ 75 mls/hr IV .per rate [facility] Last Admin: 06/28/19 13:02 Dose: 75 mls/hr Heparin Sodium/Dextrose (Heparin Drip 25,000 Units(*)) 25,000 units in 500 mls @ 0 mls/hr IV PER RATE [facility]; Protocol Last Admin: 06/28/19 12:51 Dose: 20 mls/hr Insulin Human Lispro (Humalog*) 0 units SUBCUT AC [facility]; Protocol Last Admin: 06/28/19 12:23 Dose: Not Given Losartan Potassium (Cozaar Tab*) 50 mg PO DAILY [facility] Last Admin: 06/28/19 10:42 Dose: 50 mg Nitroglycerin (Nitroglycerin Tab 0.4 Mg*) 0.4 mg SL Q5M PRN PRN Reason: ANGINA Last Admin: 06/28/19 12:19 Dose: 0.4 mg Nitroglycerin (Nitroglycerin 2% Oint*) 0.5 inch TOPICAL 0600,1200 SONIDO; Protocol Last Admin: 06/28/19 12:51 Dose: 0.5 inch Ondansetron HCl (Zofran Inj*) 4 mg IV Q6H PRN PRN Reason: NAUSEA Pharmacy Profile Note (Nitro Patch/Oint Remove*) 1 note PATCH OFF 1800 SONIDO Vital Signs - 8 hr 06/28/19 06/28/19 06/28/19 07:15 11:15 12:19 Temperature 98.1 F 97.9 F Pulse Rate 68 80 77 Respiratory 18 18 20 Rate Blood Pressure 127/75 124/74 178/94 (mmHg) O2 Sat by Pulse 96 96 100 Oximetry 06/28/19 12:36 Temperature Pulse Rate 69 Respiratory Rate Blood Pressure 132/73 (mmHg) O2 Sat by Pulse 97 Oximetry Oxygen Devices in Use Now: None Appearance: Patient is a 53yo male who appears stated age and is sitting in the bed in [facility]. Eyes: No Scleral Icterus, PERRLA Ears/Nose/Mouth/Throat: NL Teeth, Lips, Gums, Clear Oropharnyx, Mucous Membranes Moist Neck: NL Appearance and Movements; NL JVP, Trachea Midline Respiratory: Symmetrical Chest Expansion and Respiratory Effort, Clear to Auscultation Cardiovascular: NL Sounds; No Murmurs; No JVD, RRR, No Edema Abdominal: NL Sounds; No Tenderness; No Distention, No Hepatosplenomegaly Lymphatic: No Cervical Adenopathy Extremities: No Edema, No Clubbing, Cyanosis Skin: No Rash or Ulcers, No Nodules or Sclerosis Neurological: Alert and Oriented x 3, NL Sensation, NL Muscle Strength and Tone , - - CN II-XII intact. Result Diagrams: 06/28/19 12:53 06/28/19 12:53 Assess/Plan/Problems-Billing Assessment: Patient is a 53yo male with a PMH for DM II, HTN, DELIA, here with new chest pain in a crescendo pattern with an abnormal stress test, awaiting catheterization. - Patient Problems (1) Chest pain Current Visit: Yes Status: Acute Code(s): R07.9 - CHEST PAIN, UNSPECIFIED SNOMED Code(s): 25498434 Comment: - With exertion and worsening over the last week - Stress test intermediate risk with area of reversible ischemia and EKG changes - Appreciate Cardiology input, plan for cath later today - BB, Nitro patch, heparin, aspirin (2) HTN (hypertension) Current Visit: Yes Status: Acute Code(s): I10 - ESSENTIAL (PRIMARY) HYPERTENSION SNOMED Code(s): 08072549 Comment: - Continue HCTZ and Losartan - Normotensive (3) Diabetes mellitus Current Visit: Yes Status: Acute Code(s): E11.9 - TYPE 2 DIABETES MELLITUS WITHOUT COMPLICATIONS SNOMED Code(s): 78092795 Comment: - Poorly controlled with A1c of 10.7% and BG of 400 on admission - Metformin held in the hospital - SSI - Would be good candidate for SGLT-2 Inhibitors. (4) DELIA (obstructive sleep apnea) Current Visit: Yes Status: Acute Code(s): G47.33 - OBSTRUCTIVE SLEEP APNEA ( ADULT) (PEDIATRIC) SNOMED Code(s): 56758754 Comment: - Compliant with home CPAP (5) DVT prophylaxis Current Visit: Yes Status: Acute Code(s): Z29.9 - ENCOUNTER FOR PROPHYLACTIC MEASURES, UNSPECIFIED SNOMED Code(s): 185017464 Comment: - Heparin Drip (6) Full code status Current Visit: Yes Status: Acute Code(s): Z78.9 - OTHER SPECIFIED HEALTH STATUS SNOMED Code(s): 221766369 Status and Disposition: Inpatient
[2019-06-28] MEDS ORDERED: Heparin(*) 1000 UNIT/ML 10 ML VIAL CATH LAB IV ONE (13:43)
[2019-06-28] MEDS ORDERED: Heparin 2 UNITS/ML IVPREMIX* 2,000 ML IV ONE (13:43)
[2019-06-28] MEDS ORDERED: VERAPAMIL 2.5 MG/ML 2 ML VIAL ** 5 mg/2 ml ONE (13:43)
[2019-06-28] MEDS ORDERED: Iohexol 350 (CONTRAST) 200 ML MDV IV ONE (13:44)
[2019-06-28] MEDS ORDERED: Lidocaine 1% INJ* 10 MG/ML 30 ML SDV ONE (13:44)
[2019-06-28] MEDS ORDERED: nitroGLYCERIN DRIP* 25,000 MCG/250 ML BTL ONE (13:44)
[2019-06-28] MEDS ORDERED: fentaNYL* 50 MCG/ML 2 ML VIAL (100 MCG VIAL) ONE (14:25)
[2019-06-28] MEDS ORDERED: Midazolam* 1 MG/ML 5 ML VIAL (5 MG) ONE (14:25)
--- NOTE | 2019-06-28 14:39 | CONS ---
AMENDED REPORT NOW INCLUDES DESIGNATED COSIGNER CC: Dr. Storm * CONSULTATION REPORT: DATE OF CONSULT: 06/28/19 ATTENDING PHYSICIAN: Dr. Kaveh Mendez, Cardiology.* (DICTATED BY DONALD NAVARRO NP) PRIMARY CARE PHYSICIAN: Dr. Storm. CHIEF COMPLAINT: Exertional chest pain. HISTORY OF PRESENT ILLNESS: This is a pleasant 53-year-old patient with a notable history of hypertension; uncontrolled type 2 diabetes mellitus dating back to 2011, on metformin therapy; obstructive sleep apnea, compliant with CPAP therapy; known underlying right bundle branch block according to medical records; hepatic steatosis; and 1.4 cm left adrenal nodule noted on remote CT. The patient presented to [facility] on 06/27/19 due to complaints of left substernal chest pain described as burning/pressure- like in nature after utilizing a recumbent bike for 25 minutes yesterday morning around 10 a.m. Upon further inquiry, the patient states that for the past 2 to 3 weeks since his gym has been closed, he has been noticing accelerating episodes of left substernal chest pain occurring with and without activity. Episodes have been in frequency in both intensity and again frequency. Yesterday, episode occurred 10 minutes after utilizing recumbent bike while he was at rest. Due to the nature of his symptomatology, his directed him to present to [facility] for further evaluation out of concern that the patient's symptom was similar to her personal coronary equivalent. The patient admits that he lives a fairly active lifestyle. 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 The patient states that in hindsight that is probably why he was able to identify that he has been having accelerating chest pain when otherwise he may not have noticed it. The patient had cardiac enzymes evaluated and were negative during the stay. He was risk stratified via exercise nuclear stress test this morning. The patient had reproduction of chest pain in recovery with anterior ST segment depression. Per myocardial perfusion imaging report, EF was 46% with anterior wall hypokinesis, moderate sized reversible defect anterior wall extending to the lateral wall. Given symptomatology and abnormal stress test, we were asked to see the patient in consultation. Upon entering room, the patient was comfortable with at bedside; however, long term through obtaining history of present illness, he had informed me that he was having recurrent chest discomfort. It was a 2/10 and actually developed while I was speaking with the patient. He was started on IV heparin therapy, given a total of 325 mg of aspirin, 1 sublingual nitroglycerin, and pain had improved. Last echocardiogram in 2013; per report, LVEF 55% to 60% with septal wall hypertrophy identified, mild left atrial dilatation, mild right atrial dilatation, trace tricuspid insufficiency, mild mitral insufficiency. PAST MEDICAL HISTORY: 1. Hypertension. 2. Right bundle branch block. 3. Obstructive sleep apnea. 4. Type 2 diabetes mellitus. 5. Hepatic steatosis. 6. A 1.4 cm left adrenal nodule. PAST SURGICAL HISTORY: Includes lipoma removal involving his head and neck and tonsillectomy. HOME MEDICATIONS: Listed include: 1. Metformin 1000 mg p.o. b.i.d. 2. Telmisartan with hydrochlorothiazide 40/12.5 mg a day. Ugfo-toy-rkelqsn supplements include: 1. Vitamin C. 2. Zinc. 3. Elderberry. 4. Quercetin. ALLERGIES: No known drug allergies. Denies allergy to contrast dye or shellfish. FAMILY HISTORY: Noncontributory. Denies history of stroke, heart attacks, or in first-degree relatives. SOCIAL HISTORY: The patient is and lives at home with his . He is employed as a respiratory therapist at [employer]. He consumes alcohol rarely. Denies tobacco use or chewing tobacco. He is a . In regards to drug use, he rarely utilizes marijuana. Denies cocaine use. In regards to activity, the patient typically works out routinely several times a week with weights and also partakes in high intensity interval training. REVIEW OF SYSTEMS: All systems have been reviewed and are otherwise negative except what was above mentioned in the HPI. PHYSICAL EXAM: Temperature is 97.9, oxygenation 96% on room air, blood pressure 132/73, respirations 18, pulse 80. General: The patient is sitting upright in bed, initially appeared comfortable; however, started to develop ____ __. HEENT: Head is atraumatic, normocephalic. Oral mucosa is moist. Tongue is midline. Neck: Supple. Trachea midline. No JVD. No carotid bruits. Cardiac: Normal S1, S2. Regular rate and rhythm. No murmur, rub, or gallop noted. Lungs: Auscultated posteriorly. No evidence of adventitious breath sounds. Respirations are nonlabored. /GI: Abdomen is soft, nontender, nondistended. Normoactive bowel sounds x4. Extremities: No pedal edema, no clubbing, no cyanosis. Peripheral Vascular: 3+ radial pulse palpated bilaterally and symmetrically, 3+ dorsalis pedis palpated bilaterally and symmetrically. DIAGNOSTIC STUDIES/LAB DATA: EKG reviewed on 06/28/19: Sinus rhythm, rate 76 with known incomplete right bundle branch block. No ST segment elevation or depression. Blood work reviewed. White count 6, hemoglobin 14.6, hematocrit 41, platelets 169. INR 0.92. Sodium 136, potassium 3.5, creatinine 0.94. Troponin negative. Magnesium 1.7 and was replaced. LDL 60. ASSESSMENT AND PLAN: 1. Unstable angina. The patient has had crescendo angina for the past 4 weeks , accelerating not only in regards to frequency but also intensity. The patient had presented to the emergency room yesterday due to left-sided substernal chest pain as mentioned above that was induced 10 minutes after working out on a recumbent bike. The patient was risk stratified with an exercise nuclear stress test. The patient had reproduction of symptomatology in recovery with ST segment depression in anterior leads, EF 46% with moderate reversible defect involving the anterior territory extending into the lateral territory. Risk factors include uncontrolled type 2 diabetes and hypertension. The patient states that he is unfortunately noncompliant with medical therapy. He recognizes that he would benefit from seeing an animal killer. He also states that he has a hard time checking his glucose due to fear of needles. I reviewed the indication for cardiac catheterization with the patient and his at bedside. The patient is aware of risks, which include bleeding, infection, risk of vessel damage, stroke, heart attack, , requirement of dual antiplatelet therapy, possible referral for bypass surgery. The patient is agreeable to proceeding with cardiac catheterization. Consent will be obtained by counter tender, Dr. Uriostegui. We will load the patient with 325 mg of aspirin now. He was started on IV heparin therapy given development of chest pain while I was in his room. Chest pain did improve with administration of sublingual nitroglycerin and IV Lopressor therapy. We will reevaluate medication regimen post cardiac catheterization. Please consider discharging the patient on SGLT2 inhibitor given mortality reduction in patients with diabetes and coronary artery disease. Again, we will follow closely. 2. History of type 2 diabetes mellitus. The patient states average glucose in the past 2 to 3 weeks has been 250. We will discontinue metformin therapy in preparation for cardiac catheterization. Defer glycemic management to primary team. Again, consider SGLT2 inhibitors prior to discharge. 3. History of hypertension. Historically on telmisartan with hydrochlorothiazide. We will address post cath. We will likely initiate beta- eleazar therapy. 4. History of obstructive sleep apnea, compliant with CPAP therapy. 5. 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 He is compensated on physical examination. We will address medical therapy post catheterization. 6. Disposition: Pending course. Dr. Kaveh Mendez has personally seen and examined the patient and agrees with the above assessment and plan. DONALD NAVARRO NP [id number]/[facility] #: [id number] ANUJ
[2019-06-28] MEDS: Metoprolol Succinate XL TAB* 25 MG PO SCH (17:56)
[2019-06-28] MEDS ORDERED: Nitro Patch/OINT Remove PATCH OFF SCH (18:00)
--- NOTE | 2019-06-28 20:02 | CATH ---
CARDIAC CATHETERIZATION AND CORONARY ANGIOGRAPHY: DATE OF PROCEDURE: 06/28/19 PROVIDER: Dr. Kaveh Mendez. INDICATION FOR PROCEDURE: Unstable angina and positive nuclear stress test. PROCEDURE PERFORMED: Coronary angiography, left heart catheterization and left ventriculogram. CONSENT: The patient was interviewed and examined on the floor of the hospital where the options, risks, and benefits were explained. He had an opportunity to answer questions and understood the issues and consented to the procedure. PRE-CATHETERIZATION LABORATORY RESULTS: Hemoglobin 14.6, hematocrit 41%, platelet count 169,000. BUN 10, creatinine 0.9. Electrolytes and coagulation studies within normal limits. EQUIPMENT UTILIZED: 1. 6-[employer] Glidesheath. 2. 0.035 x 260 Head guidewire. 3. 5-[employer] TIG 4.0 catheter. 4. JL4.0 5-[employer] diagnostic catheter. 5. JL3.5 5-[employer] catheter. 6. JR4.0 5-[employer] catheter. 7. AL2 5-[employer] diagnostic catheter. 8. TR Band from [employer]. MEDICATIONS GIVEN DURING THE PROCEDURE: 1% Xylocaine for local anesthesia, midazolam 2 mg, fentanyl 50 mg in divided doses. The radial, "cocktail," included heparin 5000 units, nitroglycerin 300 mcg and verapamil 2.5 mg, given through the side arm of the radial sheath. DESCRIPTION OF PROCEDURE: The patient was brought to the cardiac shrimp pond laborer. A formal time-out was performed. He was prepped and draped in the usual sterile fashion and the right radial artery area was infiltrated with local anesthesia. The right radial artery was cannulated with a sheath without incident. Diagnostic coronary angiography was performed using the equipment noted above. All catheters were introduced and withdrawn over a guidewire. The aortic valve was crossed with a pigtail catheter, pressure was measured, and contrast injected. The left ventriculogram was performed, injecting 28 cc of contrast at 14 cc a minute. There was no gradient across the aortic valve on pullback. At the end of the case, the catheter and sheath were removed over guidewire and hemostasis was successfully obtained with a vascular band. The total contrast used was 110 cc, fluoro time was 13.1 minutes, the fluoro dose was 1273 milligray, the cine dose was 8828 DAP. RESULTS: HEMODYNAMIC DATA: The left ventricular pressure was 125/2/9 (end-diastolic=9 mm Hg.) There was no gradient on pullback across the aortic valve. The aortic pressure throughout the case was 123/72 with a mean of 95. CORONARY ANGIOGRAPHY: 1. Left main: normal. 2. Left anterior descending: normal. There was a large first diagonal branch and medium to large size second and third diagonal branches. All diagonals were free of disease. The LAD wrapped around the inferior part of the apex. 3. Circumflex: nondominant and normal. There was a large first obtuse marginal branch and a small second obtuse marginal branch, both are normal. 4. Right coronary artery: normal, very large and dominant. 5. Left ventriculogram: performed in the [place] projection and showed no wall motion abnormalities and an overall ejection fraction of approximately 55% ( visual estimate). CONCLUSION: 1. Normal right dominant coronary artery system. 2. Normal left ventricular end-diastolic pressure and overall systolic function with an ejection fraction of 55% (visual estimate). [id number]/CPS #: [id number] MTDD
[2019-06-28] MEDS ORDERED: metFORMIN* 1,000 MG TAB PO SCH (21:00)
[2019-06-29] MEDS: Senna TAB 8.6 mg* TAB PO PRN ×2 (04:09→11:33)
[2019-06-29] MEDS: Magnesium Hydroxide LIQ* 30 ML UDC PO PRN ×2 (04:09→11:32)
[2019-06-29 06:58] LABS: Albumin 3.8 g/dL (3.2-5.2); Albumin/Globulin Ratio 1.7 (1-3); BUN/Creatinine Ratio 12.1 (8-20); Calcium 8.9 mg/dL (8.6-10.3); EGFR African American 95.7 (>60); EGFR Non-African American 79.1 (>60); Globulin 2.3 g/dL (2-4); Magnesium 1.8 mg/dL (1.9-2.7); Potassium 3.7 mmol/L (3.5-5.0); Total Bilirubin 0.9 mg/dL (0.2-1.0); Total Protein 6.1 g/dL (6.4-8.9)
[2019-06-29] MEDS: Insulin LISPRO* 1 UNITS UNIT SUBCUT SCH ×2 (07:57→12:14)
[2019-06-29] MEDS: Aspirin EC TAB* 81 MG TAB.EC PO SCH (07:58)
[2019-06-29] MEDS: Losartan TAB* 25 MG PO SCH (07:58)
[2019-06-29] MEDS: Metoprolol Succinate XL TAB* 25 MG PO SCH (07:58)
[2019-06-29 12:31] VITALS: BP 149/84
--- NOTE | 2019-06-29 13:48 | CONSULT ---
Cardiology Note Patient seen and examine. No new complaints. Ambulating in room without difficulty. Right radial puncture site without hematoma or ecchymosis.
--- NOTE | 2019-06-29 15:09 | DS ---
ADDENDUM NOW INCLUDED ON THIS REPORT CC: Dr. Storm; Dr. Uriostegui, Linux System Engineer; Dr. Mednez * DISCHARGE SUMMARY: DATE OF ADMISSION: 06/27/19 DATE OF DISCHARGE: 06/29/19 PRIMARY CARE PROVIDER: Dr. Storm. DISCHARGE DIAGNOSES: 1. Chest pain with unremarkable cardiac catheterization. 2. Uncontrolled hypertension. 3. Uncontrolled diabetes. CONSULTATIONS DURING HOSPITAL STAY: Included Dr. Mendez from Cardiology. PROCEDURES PERFORMED: Included cardiac catheterization on 06/28/19, impression : "Normal right dominant coronary artery system. Normal left ventricular end- diastolic pressure and overall systolic function, an ejection fraction of 55% on a visual estimate." The patient had a cardiac stress test prior to the cardiac cath which was intermediate risk with EF of 46% and moderate size reversible change involving the anterior wall extending slightly to the lateral wall. LABORATORY DATA DURING THE HOSPITAL STAY: Included; on 06/29/19, sodium 136, potassium 3.7, chloride 104, carbon dioxide 24, BUN 12, creatinine 0.99. Liver functions were unremarkable. Cholesterol profile showed triglycerides of 165, cholesterol total of 127, LDL of 56, HDL of 38. Hemoglobin A1c was noted to be 10.7 on 06/28/19. D-Dimer was below 200 at admission. 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 Please see history and physical documented on admission for further details. Shortly, the patient underwent a cardiac stress test, which showed moderate area of ischemia with lower EF. He was noted to be hypertensive during the hospital stay and his hemoglobin A1c was elevated at 10.7. The patient stated that he had been under a significant amount of stress at work due to his colleague being sick with COVID. He also was exposed to a COVID positive patient without proper equipment at that point. His father also was in the hospital due to COVID, and luckily he actually improved despite having a history of CLL and is now at home in [place]. The patient stated that he has been eating irregularly due to the stress, but he had been taking his medications as prescribed. Due to his intermediate probability stress test, Cardiology recommended cardiac catheterization that was performed on 06/28/19 and showed no unremarkable coronary arteries. At that point, Dr. Mendez recommended introduction of beta- eleazar to the patient's medications. Due to the patient's abnormal hemoglobin A1c and uncontrolled diabetes, the patient was added an SGLT2 inhibitor to his metformin. At discharge, the patient is recommended to follow up with his primary care provider in 4 to [address] Mendez to schedule an appointment in a couple of weeks. Physical exam at the time of discharge, blood pressure 149/84, heart rate of 70 and regular, respiratory rate 20, oxygen saturation 95% on room air, temperature 97.3. General: The patient is a very pleasant 53-year-old male who is in no acute distress. The patient is alert and oriented x3. HEENT: Head: Atraumatic, normocephalic. Eyes: Pupils are equal, reactive to light and accommodation. Oropharynx clear. Mucosa moist. Neck: Supple. No JVD. No bruits bilaterally. Cardiovascular: Regular rate and rhythm. No murmur. Respiratory: Clear to auscultation bilaterally. Abdomen: Soft, nontender. Bowel sounds present in all 4 quadrants. Extremities: There is no edema. Pulses are +2 bilaterally. No clubbing or cyanosis. On neuro evaluation, speech clear. Cranial nerves II through XII grossly intact. Motor strength is 5/5 bilaterally. Please note that this is a short summary of the patient's hospitalization. Please refer to further medical records for details. TIME SPENT: Approximately 45 minutes was spent on the patient's discharge. ADDENDUM: MEDICATIONS AT DISCHARGE: 1. Telmisartan/hydrochlorothiazide 40/12.5 mg daily. 2. Invokamet one tablet b.i.d. 3. Losartan 50 mg daily. 4. Metoprolol succinate 25 mg twice a day. [id number]/CPS #: [id number] A- [id number]/CPS #: [id number] [facility]
--- NOTE | 2019-06-30 18:45 | DS ---
CC: Dr. Storm; Dr. Mendez DISCHARGE SUMMARY: DATE OF ADMISSION: DATE OF DISCHARGE: 06/29/19 ADDENDUM: MEDICATIONS AT DISCHARGE: 1. Telmisartan/hydrochlorothiazide 40/12.5 mg daily. 2. Invokamet one tablet b.i.d. 3. Losartan 50 mg daily. 4. Metoprolol succinate 25 mg twice a day. [id number]/[facility] #: [id number] [facility] [place]
== END 2019-06-29 15:26 | disposition home or self-care (01) | DRG 191 ==
LOC: ED 12:03 → MEDTELE 15:05 → OBSVTOIN 06-28 14:17
PROVIDERS: ADMIT Hospitalist; ATTEND Internal Medicine
PROC: B211YZZ Fluoroscopy of Multiple Coronary Arteries using Other Contrast (ICD-10-PCS; 2019-06-28)
PROC: B215YZZ Fluoroscopy of Left Heart using Other Contrast (ICD-10-PCS; 2019-06-28)
PROC: 4A023N7 Measurement of Cardiac Sampling and Pressure, Left Heart, Percutaneous Approach (ICD-10-PCS; principal; 2019-06-28 14:00)
DX: I20.0 Unstable angina (principal); R52 Pain, unspecified; E11.65 Type 2 diabetes mellitus with hyperglycemia; I10 Essential (primary) hypertension; R94.39 Abnormal result of other cardiovascular function study; G47.33 Obstructive sleep apnea (adult) (pediatric); I45.19 Other right bundle-branch block; K76.0 Fatty (change of) liver, not elsewhere classified; Z99.89 Dependence on other enabling machines and devices; Z79.84 Long term (current) use of oral hypoglycemic drugs; Z79.899 Other long term (current) drug therapy; Z80.8 Family history of malignant neoplasm of other organs or systems; Z82.49 Family history of ischemic heart disease and other diseases of the circulatory system; Z83.438 Family history of other disorder of lipoprotein metabolism and other lipidemia; Z83.3 Family history of diabetes mellitus; Z85.828 Personal history of other malignant neoplasm of skin
CPT/HCPCS: 36415; 71045; 78452; 80048; 80053; 80061; 82565; 82947; 83036; 83605; 83735; 84484; 84520; 85025; 85347; 85379; 85610; 85730; 86850; 86900; 86901; 93005; 93017; 93458; 96360; 96361; 99284; A9270-GY; A9502; G0378; J1644; J2250; J3010; J3475; J3490